=== PATIENT | male | born 1980 | race Caucasian/White ===

== ENCOUNTER 2018-11-15 03:26 | Emergency (ER) | payer SELFPAY ==
[~2018-11-15] VITALS: Ht 172.7 cm; Wt 95.3 kg
--- NOTE | 2018-11-15 03:30 | NUR ---
BIBRA C/O ETOH AND AUDITORY HALLUCINATIONS STATING TO HARM SELF. NOTED R FACIAL ABRASION S/P GLF. DENIES KO. VITAL SIGNS STABLE. NO ACUTE DISTRESS NOTED AT THIS TIME. WILL CONTINUE TO MONITOR.
--- NOTE | 2018-11-15 03:40 | NUR ---
URINE COLLECTED AND SENT TO LAB
--- NOTE | 2018-11-15 04:08 | NUR ---
MEDICAL RECORDS TECH AT BEDSIDE FOR BLOOD DRAW
[2018-11-15 04:16] LABS: APPEARANCE,URINE Clear (CLEAR); BILIRUBIN,URINE Negative (NEGATIVE); BLOOD, URINE Small Ery/uL (NEGATIVE); COLOR,URINE Yellow (YELLOW); KETONES,URINE 40 (NEGATIVE); LEUKOCYTE ESTERASE ,URINE Negative (NEGATIVE); NITRITE, URINE Negative (NEGATIVE); PH,URINE 5.5 (5.0-8.0); PROTEIN,URINE 100 mg/dl (NEGATIVE); UGLUCOSE Negative (NEGATIVE); UROBILINOGEN,URINE 0.2 EU/dL (0.2)
[2018-11-15 04:30] LABS: BASOPHILS # (AUTO) 0.1 /CMM (0.0-0.2); BASOPHILS % (AUTO) 0.9 % (0.0-2.0); EOSINOPHILS % (AUTO) 0.4 % (0.0-6.0); HEMATOCRIT 46 % (39-51); HEMOGLOBIN 15.9 g/dL (13.5-17.5); LYMPHOCYTES % (AUTO) 24.4 % (20.0-44.0); MEAN CORPUSCULAR HGB CONC 35 g/dl (31.0-36.0); MEAN CORPUSCULAR VOLUME 87 fL (80-96); MONOCYTES # (AUTO) 0.5 /CMM (0.1-1.30); MONOCYTES % (AUTO) 5.6 % (2.0-12.0); NEUTROPHILS # (AUTO) 5.6 /CMM (1.8-8.9); NEUTROPHILS % (AUTO) 68.7 % (43.0-81.0); PLATELET COUNT (AUTO) 290 /CMM (150-450); RED BLOOD CELL COUNT(AUTO) 5.26 MIL/uL (4.5-6.0); WHITE BLOOD COUNT (AUTO) 8.1 K/uL (4.3-11.0)
[2018-11-15 05:46] LABS: ALANINE AMINOTRANSFERASE 69 U/L (12-78); ALBUMIN 3.9 g/dL (3.4-5.0); ALCOHOL, BLOOD 246 mg/dL (0-0); ALKALINE PHOSPHATASE 86 U/L (46-116); ASPARTATE AMINOTRANSFERASE 50 U/L (15-37); BILIRUBIN,DIRECT 0.1 mg/dL (0.0-0.2); BILIRUBIN,TOTAL 0.5 mg/dL (0.2-1.0); CALCIUM, SERUM 8.1 mg/dL (8.5-10.1); CARBON DIOXIDE 21 mmol/L (21-32); CHLORIDE 97 mmol/L (98-107); CREATININE 0.8 mg/dL (0.6-1.3); GLUCOSE 97 mg/dL (74-106); POTASSIUM 3.7 mmol/L (3.5-5.1); SODIUM SERUM 136 mmol/L (136-145); TOTAL PROTEIN, SERUM 8.1 g/dL (6.4-8.2); UREA NITROGEN, BLOOD 16 mg/dL (7-18)
[2018-11-15 05:50] LABS: ACETAMINOPHEN < 2 ug/ml (10-30); SALICYLATE 1.6 mg/dL (2.8-20.0)
[2018-11-15] MEDS ORDERED: IV NS 0.9% 1,000 ML BAG IV ONE (06:00)
[2018-11-15 06:45] LABS: RBC,URINE 0-2 /HPF (0-2)
[2018-11-15 06:46] LABS: BACTERIA,URINE None seen /HPF (None Seen); SQUAMOUS EPITHELIAL CELL,UR Rare /HPF (None Seen); WBC,URINE 0-2 /HPF (0-3)
[2018-11-15 06:47] LABS: CALCIUM OXALATE CRYSTALS,UR Few /HPF (None Seen); FINE GRANULAR CASTS,URINE Rare /LPF (None Seen)
--- NOTE | 2018-11-15 07:27 | NUR ---
GAVE REPORT TO AM SHIFT RN FOR SHEILA
[2018-11-15] MEDS ORDERED: LORAZEPAM INJ 2 MG/ML VIAL ONE (11:51)
--- NOTE | 2018-11-15 12:01 | NUR ---
RECEIVED VERBAL ORDER FROM DR. GALVEZ TO GIVE ATIVAN 1MG IV. PATIENT DENIES SI/HI AT THIS TIME. STARTING TO APPEAR ANXIOUS.
--- NOTE | 2018-11-15 13:00 | NUR ---
FOOD TRAY PROVIDED AND TOLERATED MEAL. NEEDS ATTENDED, DENIES PAIN OR DISCOMFORT AT THIS TIME.
[2018-11-15] MEDS ORDERED: LORAZEPAM INJ 2 MG/ML VIAL IV ONE (13:30)
--- NOTE | 2018-11-15 14:06 | NUR ---
Patient discharged to home in stable condition, denies SI/HI. Written and verbal after care instructions given. Patient verbalizes understanding of instruction.
[2018-11-15 14:07] VITALS: BP 133/85
== END 2018-11-15 14:08 | disposition home or self-care (01) ==
LOC: ER 03:30
DX: R45.851 Suicidal ideations (principal); S00.81XA Abrasion of other part of head, initial encounter; F10.129 Alcohol abuse with intoxication, unspecified; W18.39XA Other fall on same level, initial encounter; Y93.89 Activity, other specified; Y92.89 Other specified places as the place of occurrence of the external cause; Y99.8 Other external cause status; Y90.8 Blood alcohol level of 240 mg/100 ml or more
CPT/HCPCS: 36415; 70450; 80048; 80076; 80305; 80307; 80329; 81001; 85025; 96374; 99284; G0480; J2060; J7030; 81000-TC